=== PATIENT | male | born 2000 | race Two or more races ===

== ENCOUNTER 2020-08-01 06:36 | Outpatient (CLI) | payer OTHER, SELFPAY ==
--- NOTE | ~2020-08-01 | MR_ITS ---
EXAMINATION: MR ankle LT wo con DATE: 08/01/2020 07:53 INDICATION: Medial and lateral left heel pain. TECHNIQUE: Magnetic resonance imaging (MRI) of the left ankle was performed without intravenous contr ast. Sequences included sagittal, coronal, and axial proton-density weighted fast spin echo without a nd with fat saturation. COMPARISON: None. FINDINGS: Medial ankle ligaments: There is loss of the normally sharply delineated striated pattern to the deep deltoid ligament. There is also mild thickening and increased signal at the navicular side of the superomedial component of the spring ligament complex and anterior superficial deltoid ligament. There is no surrounding soft t issue edema to suggest acute injury in both findings likely represent scarring related to chronic spr ains. Lateral ankle ligaments: The anterior and posterior inferior tibiofibular ligaments are normal. Mild thickening of the anterio r talofibular ligament with small osteophytes at the fibular cortex of the ligament. Mild thickening and mild increased signal of the fibular side of the calcaneofibular ligament. Similarly there is no surrounding edema and findings are consistent with sequela of chronic sprains. Posterior talofibular ligament is normal. Tendons: Achilles tendon is normal. The peroneus longus tendon is normal. Mild tendinopathy and longitudinal s plit tearing of the peroneus brevis tendon centered at the level of the tip of the lateral malleolus. The tibialis anterior and extensor hallucis longus and extensor digitorum longus tendons are normal. The tibialis posterior, flexor digitorum longus and flexor hallucis longus tendons are normal. Plantar fascia: Plantar aponeurosis is normal. Bones/other: Bone alignment is normal. No reactive edema, fracture or pathologic marrow replacing process. Mild pa rtial thickness cartilage loss with smooth chondral surface along the talar dome and tibial plafond a nd with tiny marginal osteophytes along the anterior plafond consistent with mild osteoarthritis. Mil d osteoarthritis with small partial-thickness cartilage loss at the middle facet of the tibiotalar lisa int. Additional mild osteoarthritis with small partial-thickness cartilage loss at the central aspect of the first tarsal metatarsal joint. Fluid: Physiologic amount fluid in the joint spaces. No tenosynovitis, bursitis or other abnormal fluid jacqueline ections. Nonspecific minimal edema in the subcutaneous fat along the plantar/lateral margin of the po sterior tuberosity of the calcaneus. IMPRESSION: 1. Mild tendinopathy and longitudinal split tearing of the peroneus brevis tendon. 2. 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 3. Mild scarring consistent with chronic medial and lateral ankle sprains. Reviewed, dictated and finalized at [facility]. BORER IMPRESSION: 1. Mild tendinopathy and longitudinal split tearing of the peroneus brevis tend on. 2. 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 3. Mild scarring consistent with chronic medial and lateral ankle sprains.
== END 2020-08-01 06:37 | disposition home or self-care (01) ==
PROVIDERS: Visit Provider Orthopaedic Surgery
DX: M19.072 Primary osteoarthritis, left ankle and foot (principal)
CPT/HCPCS: 73721